=== PATIENT | male | born 1970 | race Two or more races ===

== ENCOUNTER 2023-01-07 11:52 | Emergency (ER) | payer SELFPAY ==
[~2023-01-07] VITALS: Ht 167.6 cm; Wt 99.8 kg
[2023-01-07] MEDS ORDERED: TDAP [DIPH/PERTUSSIS/TET] 0.5 ML VIAL IM ONE ×2 (12:27→12:30)
[2023-01-07] MEDS ORDERED: LIDOCAINE 1%-EPI 1:100,000 20 ML VIAL ONE (12:27)
[2023-01-07] MEDS ORDERED: LIDOCAINE 1%-EPI 1:100,000 20 ML VIAL TP ONE (12:30)
[2023-01-07 13:45] VITALS: BP 140/80; TEMP 98.4; O2SAT 98
== END 2023-01-07 13:35 | disposition home or self-care (01) ==
LOC: ER 11:55
DX: S01.81XA Laceration without foreign body of other part of head, initial encounter (principal); I10 Essential (primary) hypertension; E11.9 Type 2 diabetes mellitus without complications; Z60.2 Problems related to living alone; W26.8XXA Contact with other sharp object(s), not elsewhere classified, initial encounter; Y93.89 Activity, other specified; Y92.89 Other specified places as the place of occurrence of the external cause; Y99.0 Civilian activity done for income or pay
CPT/HCPCS: 12054; 70450; 90471; 90715; 99285; J3490